=== PATIENT | male | born 1960 | race Caucasian/White ===

== ENCOUNTER 2016-07-23 08:22 | Day surgery (SDC) | payer BC ==
--- NOTE | ~2016-07-23 | EGD ---
EGD REPORT [facility] [address] [address] NAME: HAI SANDOVAL : [birth year] STATUS : [place] [facility] [place] PAT#: [id number] AGE: 55 ADM/REG DATE : 07/23/16 MR#: [id number] REPORT SERV DATE: 07/23/16 DICTATED BY: LUZ MARINA MERCEDES DATE: 07/23/16 REPORT STATUS : Draft TRANSCRIBED BY: [facility] DATE: 07/23/16 [facility] Patient Name: Hai Sandoval Date of : 1960 Attending MD: LUZ MARINA MERCEDES MD Procedure Date No Time: 07/23/2016 Procedure: Colonoscopy Indications: Colon cancer screening in patient at increased risk: Family history of colon polyps Referring MD: SARWAT SMALLWOOD MD Medicines: Propofol per Anesthesia Complications: No immediate complications. Procedure: Pre-Anesthesia Assessment: - ASA Grade Assessment: III - A patient with severe systemic disease. After I obtained informed consent, the scope was passed under direct vision. Throughout the procedure, the patient's blood pressure, pulse, and oxygen saturations were monitored continuously. The CF [id number] was introduced through the anus and advanced to the terminal ileum. The colonoscopy was performed without difficulty. The patient tolerated the procedure well. The quality of the bowel preparation was good. Findings: The perianal and digital rectal examinations were normal. A diffuse area of mucosa in the terminal ileum was mildly altered vascular, congested, erythematous and jpljfkgv-xdqntkm-mbvyozelw. Biopsies were taken with a cold forceps for histology. A diffuse area of mildly altered vascular, congested and erythematous mucosa was found in the transverse colon, in the ascending colon and in the cecum. Biopsies were taken with a cold forceps for histology. Two sessile polyps were found in the transverse colon. The polyps were 5 to 6 mm in size. These polyps were removed with a hot snare. Resection and retrieval were complete. Multiple small and large-mouthed diverticula were found in the recto-sigmoid colon, in the descending colon and in the transverse colon. Two sessile polyps were found in the descending colon. The polyps were 5 to 7 mm in size. These polyps were removed with a hot snare. Resection and retrieval were complete. There was evidence of a prior functional end-to-end colo-colonic anastomosis in the distal sigmoid colon. This was patent. This was characterized by healthy appearing mucosa. This was traversed. Non-bleeding internal hemorrhoids were found during retroflexion and were mild, small and Grade I (internal hemorrhoids that do not prolapse). EGD REPORT [address] [address] NAME: HAI SANDOVAL : [birth year] STATUS : REG [facility]#: [id number] AGE: 55 ADM/REG DATE : 07/23/16 MR#: [id number] REPORT SERV DATE: 07/23/16 DICTATED BY: LUZ MARINA MERCEDSE DATE: 07/23/16 REPORT STATUS : Draft TRANSCRIBED BY: [employer] DATE: 07/23/16 Impression: - Altered vascular, congested, erythematous and rxipxpzj-fokzupl-xotyzorbn mucosa in the terminal ileum. Biopsied. - Altered vascular, congested and erythematous mucosa in the transverse colon, in the ascending colon and in the cecum. Biopsied. - Two 5 to 6 mm polyps in the transverse colon. Resected and retrieved. - Diverticulosis in the recto-sigmoid colon, in the descending colon and in the transverse colon. - Two 5 to 7 mm polyps in the descending colon. Resected and retrieved. - Patent functional end-to-end colo-colonic anastomosis. - Non-bleeding internal hemorrhoids. Recommendation: - Patient has a contact number available for emergencies. The signs and symptoms of potential delayed complications were discussed with the patient. Return to normal activities tomorrow. Written discharge instructions were provided to the patient. - Return to previous diet. - Continue present medications. - Await pathology results. - Repeat colonoscopy in 3 - 5 years for surveillance based on pathology results. - Return to my office as previously scheduled. - Discharge patient to home. Procedure Code(s): --- Professional --- 89979, Colonoscopy, flexible, proximal to splenic flexure; with removal of tumor(s), polyp(s), or other lesion(s) by snare technique 32862, 59, Colonoscopy, flexible, proximal to splenic flexure; with biopsy, single or multiple Diagnosis Code(s): --- Professional --- K63.89, Other specified diseases of intestine D12.4, Benign neoplasm of descending colon D12.3, Benign neoplasm of transverse colon K64.0, First degree hemorrhoids K57.30, Diverticulosis of large intestine without perforation or abscess without bleeding Z98.0, Intestinal bypass and anastomosis status Z12.11, Encounter for screening for malignant neoplasm of colon Z83.71, Family history of colonic polyps EGD REPORT [address] [address] NAME: HAI SANDOVAL : [birth year] STATUS : [facility] [place] PAT#: [id number] AGE: 55 ADM/REG DATE : 07/23/16 MR#: [id number] REPORT SERV DATE: 07/23/16 DICTATED BY: LUZ MARINA MERCEDES DATE: 07/23/16 REPORT STATUS : Draft TRANSCRIBED BY: [employer] DATE: 07/23/16 CPT copyright 2013 [employer]. All rights reserved. The codes documented in this report are preliminary and upon clay miller review may be revised to meet current compliance requirements. Luz Marina Mercedes MD LUZ MARINA MERCEDES MD 07/23/2016 11:54 AM This report has been signed electronically. Number of Addenda: 0 Note Initiated On: 07/23/2016 10:55 AM Scope Withdrawal Time 0 hours 23 minutes 44 seconds [address] [place] [id number]
[~2016-07-23 08:22] MED LIST: ASAB PO; EFFEX25 PO; EFFEX75 PO; LORTAB 5 PO; MAX25 PO; MOBIC15 MG PO; NASACORTAQ NAS; NEXIUM40 PO
== END 2016-07-23 23:59 | disposition home or self-care (01) ==
LOC: DMU 08:22
PROVIDERS: Internal Medicine Gastroenterology
PROC: 0DBL8ZZ Excision of Transverse Colon, Via Natural or Artificial Opening Endoscopic (ICD-10-PCS; 2016-07-23)
PROC: 0DBM8ZZ Excision of Descending Colon, Via Natural or Artificial Opening Endoscopic (ICD-10-PCS; 2016-07-23)
PROC: 0DBB8ZX Excision of Ileum, Via Natural or Artificial Opening Endoscopic, Diagnostic (ICD-10-PCS; principal; 2016-07-23 10:00)
PROC: 0DBH8ZX Excision of Cecum, Via Natural or Artificial Opening Endoscopic, Diagnostic (ICD-10-PCS; 2016-07-23 10:00)
DX: Z12.11 Encounter for screening for malignant neoplasm of colon (principal); D12.6 Benign neoplasm of colon, unspecified; D12.3 Benign neoplasm of transverse colon; D12.4 Benign neoplasm of descending colon; K63.89 Other specified diseases of intestine; K64.0 First degree hemorrhoids; K57.30 Diverticulosis of large intestine without perforation or abscess without bleeding; Z98.0 Intestinal bypass and anastomosis status; Z83.71 Family history of colonic polyps; I10 Essential (primary) hypertension; G47.33 Obstructive sleep apnea (adult) (pediatric); E66.9 Obesity, unspecified; K21.9 Gastro-esophageal reflux disease without esophagitis; L40.9 Psoriasis, unspecified; Z79.899 Other long term (current) drug therapy; Z79.82 Long term (current) use of aspirin
CPT/HCPCS: 88305